=== PATIENT | female | born 1940 | race Two or more races ===

== ENCOUNTER 2024-08-21 16:50 | Inpatient (IN) | payer MEDICARE, MEDICAID, SELFPAY ==
[2024-08-21 17:05] VITALS: BP 174/84; PULSE 95; RESP 18; TEMP 37.2; O2SAT 97; BMI 29.9
--- NOTE | 2024-08-21 17:05 | XR_ITS ---
Examination: CT abdomen and pelvis without contrast. Coronal 3-D reconstructions. Sagittal 2-D reconstructions. Date and time of exam:August 21, 2024 1758 hrs. Indications: Abdominal pain nausea vomiting and diarrhea beginning 2 days ago, small bowel obstruction history on CT abdomen pelvis March 29, 2024 CTDI: vol (mGy): 9.98 DLP: (mGycm): 565 Technique: Axial images of the abdomen have been obtained, 3 mm slice thickness Intravenous contrast material has not been administered. Low dose protocols were performed. One or more of the following dose reduction techniques were used; automated exposure control, adjustment of the mA and/or KV according to patient size, use of iterative reconstruction technique. Findings: Again noted 15 mm nodule in the right midlung which is calcified Mild enlargement cardiac contour No focal liver or splenic lesions Absent gallbladder No pancreatic or adrenal mass Bilateral parapelvic renal cysts Aorta normal size Multiple fluid distended small bowel loops No pericecal inflammatory change 15 mm fat-containing umbilical hernia Colonic diverticulosis, no diverticulitis Contracted urinary bladder No pelvic mass Grade 1 anterolisthesis L4 on L5 Moderate narrowing hip joints Impression: Small bowel obstruction pattern, consider Gastrografin small bowel series follow-up
--- NOTE | 2024-08-21 17:06 | PD.EDRME ---
Rapid Medical Screening Exam RME Arrival date/time: 08/21/24 16:50 83-year-old female with a history of hypertension and diverticulosis presents to the emergency room with a chief complaint of 8 out of 10 epigastric pain, vomiting x 1 day. I have greeted and performed a focused initial assessment of this patient. A comprehensive ED assessment and evaluation of the patient, analysis of all test results, and completion of the medical decision making process will be conducted by additional ED providers. Chief Complaint: Abdominal Pain Time Seen by Provider: 08/21/24 16:55 Vital signs reviewed by provider: Yes
[2024-08-21] MEDS: MG HYD/AL HYD/SIME (Maalox Reg) SUSP 30 ML UDC PO (17:10)
[2024-08-21] MEDS: ONDANSETRON ODT 4 MG TABRAP PO (17:10)
[2024-08-21 17:39] LABS: Basophils # (Auto) 0.1 Thou/mm3 (0.0-0.2); Basophils % (Auto) 0 % (0-2.5); Eosinophils # (Auto) 0.1 Thou/mm3 (0.0-0.5); Eosinophils % (Auto) 1 % (0-10); Hematocrit 25.1 % (36.0-46.0); Immature Granulocytes % (Auto) 0 % (0-0); Immature Granulocytes Auto 0.06 Thou/mm3 (0.00-0.00); Lymphocytes # (Auto) 1.5 Thou/mm3 (1.0-4.8); Lymphocytes % (Auto) 11 % (10-50); Mean Corpuscular HGB Conc 29.1 g/dl (31.0-37.0); Mean Corpuscular Hemoglobin 20.9 pg (25.0-35.0); Mean Corpuscular Volume 72 fL (80-100); Monocytes # (Auto) 0.7 Thou/mm3 (0.0-0.8); Monocytes % (Auto) 5 % (0-12); Neutrophils # (Auto) 11.4 Thou/mm3 (1.8-7.7); Neutrophils % (Auto) 83 % (37-80); Nucleated Red Blood Cell # 0.02 Thou/mm3 (0.00-0.00); Nucleated Red Blood Cell % 0 /100 WBC (0); Platelet Count 399 Thou/mm3 (140-440); RDW Standard Deviation 44.1 fL (36.4-46.3); Red Blood Count 3.49 Miln/mm3 (4.00-5.20); White Blood Count 13.8 Thou/mm3 (3.6-11.0)
[2024-08-21 17:57] LABS: Hemoglobin 7.3 g/dL (12.0-16.0)
[2024-08-21 18:17] LABS: Alanine Aminotransferase 12 U/L (10-49); Albumin, Serum 4.7 gm/dL (3.4-4.8); Albumin/Globulin Ratio 1.8 (1.2-2.2); Alkaline Phosphatase 110 U/L (46-116); Anion Gap 10 (7-16); Aspartate Amino Transferase 14 U/L (0-34); BUN/Creatinine Ratio 20 Ratio (12-20); Bilirubin,Total 0.4 mg/dL (0.3-1.2); Blood Urea Nitrogen 18 mg/dL (9-23); Calcium 9.7 mg/dL (8.3-10.6); Calcium (Corrected) 9.7 mg/dL (8.5-10.1); Carbon Dioxide 25.2 mMol/L (20.0-31.0); Chloride 105 mMol/L (98-107); Creatinine (Component) 0.9 mg/dL (0.6-1.3); Estimated Creatinine Clearance 44.7 mL/min (>60); Globulin 2.6 gm/dL (2.3-3.5); Glucose 165 mg/dL (74-106); Lipase 29 U/L (12-53); Osmolality,Calculated 285 (275-295); Potassium 4.9 mMol/L (3.4-5.1); Sodium 140 mMol/L (136-145); Total Protein 7.3 gm/dL (5.7-8.2); eGFR > 60 See Note
[2024-08-21 18:55] LABS: Collection Type, Urine Clean Catch
--- NOTE | 2024-08-21 19:15 | XR_ITS ---
Examination: Small bowel series 4 KUBs Exam date and time: August 21, 2024 1129 hrs. Indications: Abdominal pain and distention, dilated small bowel loops on CT abdomen pelvis study today 5:58 PM Technique And Findings: Postpartum Rn AP supine abdomen demonstrates air distended small bowel loops Patient received 120 cc Gastrografin through the orogastric tube with immediate 45 minute one hour 45 minute delayed abdomen films Contrast present in the stomach and duodenal bulb Impression: Early small bowel obstruction films Recommend follow-up KUBs 1:00 AM, 3:00 AM, 5:00 AM, 7:00 AM
--- NOTE | 2024-08-21 19:26 | PD.EDADULT ---
ED General RME/HPI General Chief complaint: Abdominal Pain Stated complaint: SEND BY PMD, C/O ABD. PAIN, N/V/D Time Seen by Provider: 08/21/24 16:55 Arrival date/time: 08/21/24 16:50 CC: Nausea vomiting with epigastric right upper quadrant pain HPI ongoing for 1 day. Denies fever chest pain shortness of breath or difficulty breathing. Currently the pain is an 8 on a 10 scale. RME / HPI RME / HPI narrative: 08/21/24 16:50 83-year-old female with a history of hypertension and diverticulosis presents to the emergency room with a chief complaint of 8 out of 10 epigastric pain, vomiting x 1 day. I have greeted and performed a focused initial assessment of this patient. A comprehensive ED assessment and evaluation of the patient, analysis of all test results, and completion of the medical decision making process will be conducted by additional ED providers. Related Data Home Medications ?Medication ?Instructions ?Recorded ?Confirmed losartan 50 mg tablet (Cozaar) 50 mg PO QDAY #0 tabs 06/27/15 05/18/24 aspirin 81 mg capsule 81 mg PO QDAY 03/29/24 05/18/24 omeprazole 20 mg capsule,delayed 20 mg PO QDAY 03/29/24 05/18/24 release linaclotide 145 mcg capsule 145 mcg PO DAILY 05/18/24 05/18/24 (Linzess) Allergies Allergy/AdvReac Type Severity Reaction Status Date / Time almond AdvReac Mild Nausea Verified 08/21/24 16:54 Review of Systems Review of Systems Narrative Review of Systems: GEN: No fever, no chills, no weight loss EYES: No discharge, no visual changes, no pain HEENT: No ear pain, no congestion, no sore throat PULM: No shortness of breath, no cough, no congestion CV: No chest pain, no dyspnea on exertion, no palpitations GI: + nausea, + vomiting, no diarrhea, no pain, no constipation : No frequency, no urgency, no dysuria MUSC/SKEL: No joint pain, no back pain SKIN: No rash PSYCH: No hallucinations, no depression HEME/LYMPH: No easy bleeding or bruising tendencies NEURO: No weakness, no headache Past Medical History Past Medical History NEUROLOGIC: Negative Neurological Disorders or Seizures CARDIAC: Positive Cardiac Disorders and Hypertension; Negative Myocardial Infarction, Cardiac Arrhythmia, Atrial Fibrillation, Angina, Heart Murmur, Coronary Artery Disease, Atherosclerotic Heart Disease, Peripheral Vascular Disease, Hypercholesterolemia, Aneurysm, Congestive Heart Failure, Congenital Heart Disease, Valvular Heart Disease, Rheumatic Fever, Cardiomyopathy, Edema, Pericarditis, Cellulitis, Deep Vein Thrombosis, Hypotension or Varicose Veins RESPIRATORY: Positive Pneumonia (IN THE PAST); Negative Chronic Obstructive Pulmonary Disease (COPD), Asthma or Tuberculosis GASTROINTESTINAL: Positive Gastrointestinal Disorders (CONSTIPATION, BLOATING), Gall Bladder Disease (HAD SURGERY) and Gastroesophageal Reflux Disease; Negative Hepatitis, Cirrhosis, Pancreatitis, Celiac Disease, Gastrointestinal Bleed, Esophageal Varices, Adan's Esophagus, Colitis, Ulcerative Colitis, Diverticulitis, Diverticulosis, Ulcer, Irritable Bowel, Crohn's Disease, Obstructive Bowel, Hiatal Hernia, Hemorrhoids or Obesity GENITOURINARY: Negative Genitourinary Disorders, Renal Disease or Dialysis REPRODUCTIVE: Positive Previous Pregnancies; Negative Breast Cancer, Endometriosis or Pelvic Inflammatory Disease MUSCULOSKELETAL: Positive Musculoskeletal Disorders and Arthritis; Negative Osteoporosis or Fractures ENT: Positive Cataracts (BILATERAL) and Deafness (SELAWIK); Negative Glaucoma, Blind, Retinal Detachment, Macular Degeneration, Ear Infection or Eye Prosthesis ENDOCRINE: Negative Endocrine Disorders, Diabetes Mellitus Type 1, Diabetes Mellitus Type 2, Hypoglycemia, [place]'s Syndrome, [place]'s Disease, Hyperthyroidism, Hypothyroidism, Parathyroid Disease, Pituitary Disease, Systemic Lupus Erythematosus, Syndrome of Inappropriate Antidiuretic Hormone (SIADH), Adrenal Disease or Graves' Disease HEMATOLOGIC: Positive Blood Disorders and Anemia; Negative Sickle Cell Disease PSYCHO/SOCIAL: Positive Depression (IN THE PAST) and Anxiety (IN THE PAST) OTHER HISTORY: Positive Chicken Pox and Measles; Negative Hospitalization, Autoimmune Disease, Down Syndrome, Developmental Delay, Shingles, Falls, Blood Transfusions, Anesthesia Reactions, Chemotherapy, MRSA, Human Immunodeficiency Virus (HIV), Mumps, Rubella (Chinese Measles), Pertussis, Clostridium Difficile, Cancer or Breast Cancer Family History FAMILY HISTORY: Positive Family Cardiac Disorders and Family Surgery; Negative Family Psychiatric Problems, Family Respiratory Disorders, Family Gastrointestinal Problems, Family Cancer or Family Anesthesia Reaction Surgical History SURGICAL: Positive Eye Surgery, Abdominal Surgery, Joint Replacement and Hysterectomy; Negative Cardiac Surgery, Pacemaker or Endocrine Surgery Social History SMOKING STATUS: Never smoker SUBSTANCE USE: does not use ED Exam Narrative Physical exam: [General: In mild discomfort but not in any acute distress Head normocephalic HEENT: Within acceptable limits Neck is supple nontender Chest equal chest rise nontender to palpation Respiratory: Clear to auscultation no wheezes crackles or rubs CV: Rate rhythm is regular no murmurs rubs or clicks Abdomen is soft, epigastric right upper quadrant tenderness no reflexive guarding no rebound tenderness no left upper or lower abdominal tenderness with palpation. Back: No CVA tenderness no spinous process tenderness from cervical spine thoracic and lumbar spine Skin: Intact no petechiae rash induration ulceration or crepitus Extremities: Moving all extremity against resistance cap refill less than 2 seconds neurosensory intact. No lower extremity edema. Neuro: Awake alert oriented x3 Glascow coma 15 no focal deficits] Course Quality Measures none Orders Category Date Time Status Saline [Insert IV] NOW Care 08/21/24 19:[address] abdomen pelvis wo con Stat Exams 08/21/24 17:05 Completed XR small bowel single contrast Stat Exams 08/21/24 19:15 Ordered CBC Stat Lab 08/21/24 17:14 Completed CMP [Comprehensive Metabolic Panel] Stat Lab 08/21/24 17:14 Completed Lipase Stat Lab 08/21/24 17:14 Completed UA [Urinalysis] Stat Lab 08/21/24 18:31 Completed Urine Culture Stat Lab 08/21/24 18:31 Received Ondansetron Inj [Zofran Inj] Med 08/21/24 19:21 Discontinued 4 mg IV X1 ONE Ondansetron Odt [Zofran Odt] Med 08/21/24 17:05 Discontinued 4 mg PO X1 ONE Sodium Chloride 0.9% 1000 ml [Ns] 1,000 ml Med 08/21/24 19:21 Active IV 999 mls/hr mg Hyd/Al Hyd/Rosa Susp [Maalox Susp] Med 08/21/24 17:06 Discontinued 30 ml PO X1 ONE Vital Signs Vital signs: Vital Signs Temperature 98.9 F 08/21/24 17:05 Pulse Rate 95 08/21/24 17:05 Respiratory Rate 18 08/21/24 17:05 Blood Pressure 174/84 H 08/21/24 17:05 Pulse Oximetry (%) 97 08/21/24 17:05 Oxygen Delivery Method Room Air 08/21/24 17:[address] [facility] Patient data External records reviewed:: [facility] previous records Clinical information provided by:: patient and family Social determinants that could affect healthcare access:: none Patient has the following chronic illnesses:: Diverticulitis history of SBO How is presenting disease/condition affected by chronic disease/condition?: exacerbated by Evaluation data The following diagnostics were reviewed and interpreted by me:: lab results, radiology exam(s) and EKG tracing(s) Lab and/or radiology exams considered but not ordered:: CBC shows leukocytosis of 13.8 H&H of 7.3 and 25.1 with platelets of 399 note: Patient has dropped 3 g of hemoglobin in the past 4 months. CMP shows a sodium of 140 potassium of 4.9 chloride of 105 CO2 of 25.2 BUN of 18 creatinine of 0.9 glucose of 165 Lipase is normal. Interpretation Summary: I suspect repeat SBO, patient's case discussed with Dr. Cerna who agrees as resident for Dr. Michael Herrera's to accept the patient for admission. Medications Medications considered but not ordered:: None Medication administrations:: Medication Administration History Sodium Chloride (Ns) 1,000 mls @ 999 mls/hr IV .Q1H1M ONE Stop: 08/21/24 20:21 Discontinued Medications Al Hydrox/Mg Hydrox/Simethicone (Mg Hyd/Al Hyd/Rosa (Maalox Reg) Susp 30 Ml Udc) 30 ml PO X1 ONE Stop: 08/21/24 17:07 Last Admin: 08/21/24 17:10 Dose: 30 ml Documented By: OA Ondansetron HCl (Ondansetron Odt 4 Mg Tabrap) 4 mg PO X1 ONE; Protocol Stop: 08/21/24 17:06 Last Admin: 08/21/24 17:10 Dose: 4 mg Documented By: OA Ondansetron HCl (Ondansetron Inj 2 Mg/Ml Inj 2 Ml) 4 mg IV X1 ONE; Protocol Stop: 08/21/24 19:22 None Consultations Consultation(s) initiated? (list below): No Diagnosis Differential Diagnosis ED Complaint MDM: SBO ileus obstipation Most likely diagnosis given after review of the tests above:: SBO Admission Indicated Admission indicated?: indicated Explain why admission is indicated or not indicated:: Further medical management Admission Request Was there a request for admission?: No Disposition Plan Disposition Plan: Admit Medical Decision Making Differential Diagnosis Differential Diagnosis: SBO ileus obstipation Lab Data 08/21/24 17:14 08/21/24 17:14 Labs: Lab Results 08/21/24 08/21/24 Range/Units 17:14 18:31 WBC 13.8 H (3.6-11.0) Thou/mm3 RBC 3.49 L (4.00-5.20) Miln/mm3 Hgb 7.3 L (12.0-16.0) g/dL Hct 25.1 L (36.0-46.0) % MCV 72 L (80-100) fL MCH 20.9 L (25.0-35.0) pg MCHC 29.1 L (31.0-37.0) g/dl RDW Std Deviation 44.1 (36.4-46.3) fL Plt Count 399 (140-440) Thou/mm3 Neut % (Auto) 83 H (37-80) % Lymph % (Auto) 11 (10-50) % Reagan % (Auto) 5 (0-12) % Eos % (Auto) 1 (0-10) % Baso % (Auto) 0 (0-2.5) % Neut # (Auto) 11.4 H (1.8-7.7) Thou/mm3 Lymph # (Auto) 1.5 (1.0-4.8) Thou/mm3 Reagan # (Auto) 0.7 (0.0-0.8) Thou/mm3 Eos # (Auto) 0.1 (0.0-0.5) Thou/mm3 Baso # (Auto) 0.1 (0.0-0.2) Thou/mm3 Immature Gran # (Auto) 0.06 H (0.00-0.00) Thou/mm3 Absolute Nucleated RBC 0.02 H (0.00-0.00) Thou/mm3 Immature Gran % 0 (0-0) % Nucleated RBC % 0 (0) /100 WBC Sodium 140 (136-145) mMol/L Potassium 4.9 (3.4-5.1) mMol/L Chloride 105 (98-107) mMol/L Carbon Dioxide 25.2 (20.0-31.0) mMol/L Anion Gap 10 (7-16) BUN 18 (9-23) mg/dL Creatinine 0.9 (0.6-1.3) mg/dL Estim Creat Clear Calc 44.7 L (>60) mL/min eGFR > 60 (60 - ) See Note BUN/Creatinine Ratio 20 (12-20) Ratio Glucose 165 H (74-106) mg/dL Calculated Osmolality 285 (275-295) Calcium 9.7 (8.3-10.6) mg/dL Corrected Calcium 9.7 (8.5-10.1) mg/dL Total Bilirubin 0.4 (0.3-1.2) mg/dL AST 14 (0-34) U/L ALT 12 (10-49) U/L Alkaline Phosphatase 110 (46-116) U/L Total Protein 7.3 (5.7-8.2) gm/dL Albumin 4.7 (3.4-4.8) gm/dL Globulin 2.6 (2.3-3.5) gm/dL Albumin/Globulin Ratio 1.8 (1.2-2.2) Lipase 29 (12-53) U/L Ur Collection Type Clean Catch Urine Color Yellow (Lt Yel-Yel) Urine Clarity Clear (Clear/Hazy) Urine pH 6.5 (5.0-7.0) Ur Specific [place] 1.021 (1.001-1.035) Urine Protein 1+ A (Neg - Trace) Urine Glucose (UA) Negative (Negative) Urine Ketones Negative (Negative) Urine Blood Negative (Negative) Urine Nitrite Negative (Negative) Urine Bilirubin Negative (Negative) Urine Urobilinogen (Auto) Negative (0.0-1.0) mg/dL Ur Leukocyte Esterase Positive (Negative) Urine RBC 2 (0-3) /hpf Urine WBC 8 H (0-5) /hpf Ur Squamous Epith Cells 3 (0-5) /hpf Urine Bacteria None (None) Hyaline Casts < 1 (0-1) /hpf Discharge Plan Plan Patient Disposition: Other Care w/in Hosp ([facility]) Patient condition on transfer: Stable Prescriptions/Referrals Prescriptions/Med Rec: No Action losartan [Cozaar] 50 mg Tablet 50 mg PO QDAY Qty: 0 Linzess 145 mcg capsule 145 mcg PO DAILY Patient Comments: PLEASE SEE ATTACHED FOR DETAILED DIRECTIONS omeprazole 20 mg Capsule,Delayed Release(Dr/Ec) 20 mg PO QDAY aspirin 81 mg Capsule 81 mg PO QDAY Referrals: Ariel Henderson MD [Primary Care Provider] - In 1 week Problem List Clinical Impression: SBO (small bowel obstruction) Patient/Caregiver Discharge Instructions Education Materials: Small Bowel Obstruction Print Language: Cypriot Stand Alone Forms: [place] Award Info., Patient Portal Info Letter PA/ASSISTANT OPERATOR Supervising Physician PA/ASSISTANT OPERATOR Supervising Physician: Praveen Avila ENP
[2024-08-21 19:30] LABS: Bilirubin,Urine Negative (Negative); Blood,Urine Negative (Negative); Clarity,Urine Clear (Clear/Hazy); Color,Urine Yellow (Lt Yel-Yel); Glucose, Urine Negative (Negative); Hyaline Casts,Urine < 1 /hpf (0-1); Ketones,Urine Negative (Negative); Leukocyte Esterase,Urine Positive (Negative); Nitrite,Urine Negative (Negative); PH,Urine 6.5 (5.0-7.0); Protein,Urine 1+ (Neg - Trace); RBC,Urine 2 /hpf (0-3); Specific Gravity,Urine 1.021 (1.001-1.035); Squamous Epithelial Cell,Urine 3 /hpf (0-5); Urobilinogen,Urine Negative mg/dL (0.0-1.0); WBC,Urine 8 /hpf (0-5)
[2024-08-21] MEDS: ONDANSETRON INJ 2 MG/ML INJ 2 ML 4 MG IV ×2 (19:46→23:04)
[2024-08-21] MEDS: SODIUM CHLORIDE 0.9% 1000 ML 1,000 ML 999 ML IV (19:47)
[2024-08-21 20:16] VITALS: BP 161/88; PULSE 71; RESP 17; O2SAT 97
[2024-08-21] MEDS: KETOROLAC INJ 30 MG/ML VIAL 15 MG IVP (20:32)
--- NOTE | 2024-08-21 20:55 | XR_ITS ---
Examination: AP chest single view Technique one AP portable upright chest single view Exam date and time: August 21, 20242108 hrs. Comparison March 30, 2024 Indications: Status post orogastric tube placement Findings: Orogastric tube coiled in the stomach satisfactory position No significant cardiac enlargement No pneumonia or pulmonary edema Stable 15 mm pulmonary nodule right lower lobe Impression: Orogastric tube coiled in the stomach satisfactory position
--- NOTE | 2024-08-21 20:56 | ESHP_ITS ---
Documentation for date of: 08/21/24 [facility] History of Present Illness Chief complaint: ABDOMINAL DISTENSION AND VOMITINGS History of present illness: 83-year-old female with past medical history of hypertension, recurrent episodes of SBO, GERD presented to the hospital with a chief complaints of abdominal distention, pain and vomiting since 1 day. Patient was apparently normal 1 day ago, this morning patient developed abdominal distention associated with multiple episodes of vomitings, bilious and also reported that she had small amounts of loose watery stools associated with no blood or mucus. Reported that she is having severe abdominal pain throughout the abdomen, 10/10 in severity. Reported that everything was normal yesterday. As patient had previous episodes of small bowel obstruction, she felt that symptoms are similar to the previous episodes for which she called the daughter and later brought to our ED. While examining the patient, patient had an episode of projectile vomiting in the ED. ED Course: -Initial vitals stable except for mildly elevated blood pressure 174/84 mmHg -Labs significant for WBC 13.8, Hb 7.3, MCV 72, MCH 20.9, MCHC 29.1. Sodium 140, potassium 4.9, chloride 105, bicarb 25.2, anion gap 10, BUN 18, creatinine 0.9, liver functions are within normal limits. Urinalysis showed 1+ proteinuria. CT abdomen/pelvis showed small bowel obstruction -In the ED, patient was given ondansetron, IV fluids, ketorolac. -Patient was admitted for small bowel obstruction Past medical history: Hypertension, recurrent episodes of SBO, GERD. Past surgical history: Hysterectomy, cholecystectomy, appendectomy, left knee total replacement Social history: Denies smoking, alcohol, other illicit drug abuse. Review of Systems Review of Systems Systems Reviewed: All systems reviewed, normal except as documented Exam Vital Signs Temp Pulse Resp BP Pulse Ox O2 Del Method 98.9 F 71 17 161/88 H 97 Room Air 08/21/24 17:05 08/21/24 20:16 08/21/24 20:16 08/21/24 20:16 08/21/24 20:16 08/21/24 20:16 Narrative Exam General: Awake. In moderate distress HEENT: Normocephalic, atraumatic, mucous membranes moist. Heart: Regular rate and rhythm, no murmurs. Lungs: Clear to auscultation with no wheezing or crackles. Abdomen: Soft, moderately distended, mildly tender to touch, positive bowel sounds. ?No guarding or rebound tenderness. Neurologic: Alert and oriented x3, no gross neurological deficit, and patient able to move all 4 extremities. Extremities: No edema. Skin: No rash or ecchymoses. Results: Labs 08/21/24 17:14 08/21/24 17:14 Labs: Short CBC 08/21/24 Range/Units 17:14 WBC 13.8 H (3.6-11.0) Thou/mm3 Hgb 7.3 L (12.0-16.0) g/dL Hct 25.1 L (36.0-46.0) % Plt Count 399 (140-440) Thou/mm3 BMP 08/21/24 17:14 Sodium 140 Potassium 4.9 Chloride 105 Carbon Dioxide 25.2 BUN 18 Creatinine 0.9 Glucose 165 H Calcium 9.7 Liver Function 08/21/24 Range/Units 17:14 Total Bilirubin 0.4 (0.3-1.2) mg/dL AST 14 (0-34) U/L ALT 12 (10-49) U/L Alkaline Phosphatase 110 (46-116) U/L Albumin 4.7 (3.4-4.8) gm/dL Urine 08/21/24 Range/Units 18:31 Urine Color Yellow (Lt Yel-Yel) Urine Clarity Clear (Clear/Hazy) Urine pH 6.5 (5.0-7.0) Ur Specific [place] 1.021 (1.001-1.035) Urine Protein 1+ A (Neg - Trace) Urine Glucose (UA) Negative (Negative) Quality Measures Quality Measures none Advance care planning discussed with:: patient and child Medications Home Medications and Allergies Home Medications ?Medication ?Instructions ?Recorded ?Confirmed ?Type losartan 50 mg tablet (Cozaar) 50 mg PO QDAY #0 tabs 06/27/15 05/18/24 History aspirin 81 mg capsule 81 mg PO QDAY 03/29/24 05/18/24 History omeprazole 20 mg capsule,delayed 20 mg PO QDAY 03/29/24 05/18/24 History release linaclotide 145 mcg capsule 145 mcg PO DAILY 05/18/24 05/18/24 History (Linzess) Allergies Allergy/AdvReac Type Severity Reaction Status Date / Time almond AdvReac Mild Nausea Verified 08/21/24 16:54 Visit Medications Acetaminophen (Acetaminophen Supp 650 Mg Supp) 650 mg WA Q6HR PRN PRN Reason: Fever > 100.3 Stop: 09/20/24 20:36 Enoxaparin Sodium (Enoxaparin Sod Inj 40 Mg/0.4 Ml Syringe) 40 mg SC QDAY TUCKER Stop: 09/05/24 08:59 Ondansetron HCl (Ondansetron Inj 2 Mg/Ml Inj 2 Ml) 4 mg IV Q6H PRN; Protocol PRN Reason: NAUSEA OR VOMITING Stop: 09/20/24 20:36 Discontinued Medications Al Hydrox/Mg Hydrox/Simethicone (Mg Hyd/Al Hyd/Rosa (Maalox Reg) Susp 30 Ml Udc) 30 ml PO X1 ONE Stop: 08/21/24 17:07 Last Admin: 08/21/24 17:10 Dose: 30 ml Sodium Chloride (Ns) 1,000 mls @ 999 mls/hr IV .Q1H1M ONE Stop: 08/21/24 20:21 Last Admin: 08/21/24 19:47 Dose: 999 mls/hr Ketorolac Tromethamine (Ketorolac Inj 30 Mg/Ml Vial) 15 mg IVP X1 ONE Stop: 08/21/24 20:17 Last Admin: 08/21/24 20:32 Dose: 15 mg Ondansetron HCl (Ondansetron Odt 4 Mg Tabrap) 4 mg PO X1 ONE; Protocol Stop: 08/21/24 17:06 Last Admin: 08/21/24 17:10 Dose: 4 mg Ondansetron HCl (Ondansetron Inj 2 Mg/Ml Inj 2 Ml) 4 mg IV X1 ONE; Protocol Stop: 08/21/24 19:22 Last Admin: 08/21/24 19:46 Dose: 4 mg Assessment & Plan Plan 83-year-old female with past medical history of hypertension, recurrent episodes of SBO, GERD presented to the hospital with a chief complaints of abdominal distention, pain and vomiting since 1 day and admitted for small bowel obstruction # Small bowel obstruction, recurrent # History of multiple episodes of small bowel obstruction # Leukocytosis, likely reactive -Patient had previous history of 2 episodes of SBO which was treated conservatively in our hospital -Presented with vomitings, abdominal distention and pain since 1 day on the day of admission. -Endorsed that she had passed loose, watery, small amount of stools on the day of admission. -Labs showed CBC 13.8, hemoglobin 7.3 -Abdominal plain CT showed small bowel obstruction -Colonoscopy done on 05/2024 - Perianal hemorrhoids and sigmoid diverticulosis Plan -NG tube was placed -N.p.o. -Small bowel series was ordered -Dr New was consulted, awaited his recommendations -Patient received IV fluids in the ED and started on LR at 80 mL/h # Microcytic hypochromic anemia -Hemoglobin at the time of admission is 7.3, MCV 72, MCH 20.9, MCHC 29.1 -Iron, B12 and folate levels were ordered -Transfuse if hemoglobin is less than 7 -Monitor CBC -Stool for occult blood ordered # History of hypertension -Patient is on losartan 50 Mg p.o. daily at home -As patient currently on NG tube connected to suction, did not restarted her home medication -Hydralazine 10 Mg IV as needed SBP > 180 Patient plan of care was discussed with the attending physician, Dr. Antonio Borja, PGY1 Attending Provider Attestation/Addendum 83-year-old female with hypertension, history of small bowel obstruction, GERD presents with vomiting, abdominal distention, pain. Imaging shows small bowel obstruction. The patient will be admitted for further treatment and monitoring. Check electrolytes. Surgical consultation as indicated. Repeat imaging to monitor treatment response.
[2024-08-22] VITALS (7 sets, daily range): BP systolic 115–147; BP diastolic 60–86; PULSE 78–103; RESP 14–18; TEMP 36.4–36.9; O2SAT 92–96; BMI 30.1; BMI 30.3
--- NOTE | 2024-08-22 00:27 | PC.NURSE ---
Attempted to do med rec but pt does not have a list with her and she doesn't remember what she takes at home. Daughter said she will bring her med list in the morning
[2024-08-22] MEDS: KETOROLAC INJ 30 MG/ML VIAL 15 MG IVP (00:55)
--- NOTE | 2024-08-22 01:00 | XR_ITS ---
Examination: Abdomen AP single view Technique: AP portable supine abdomen, single view Exam date and time: August 22, 2024 0106 hours INDICATIONS: Abdominal pain and distention this week, small bowel obstruction on CT abdomen pelvis study yesterday FINDINGS: Dilated contrast in distended small bowel loops IMPRESSION: Dilated contrast in distended small bowel loops, multiple additional delayed films will be obtained
[2024-08-22] MEDS: RINGERS LACTATED 1000 ML 1,000 ML 80 ML IV (02:43)
--- NOTE | 2024-08-22 03:00 | XR_ITS ---
Examination: Abdomen AP single view Technique: AP portable supine abdomen, single view Exam date and time: August 22, 2024 0301 hrs. Indications: Vomiting abdominal pain this week, dilated small bowel loops small bowel obstruction pattern on CT abdomen pelvis August 21, 2024, 4 hour 15 minute delayed film post small bowel series Findings: Contrast is diluted in small bowel loops which are distended Impression: Contrast is diluted in small bowel loops which are distended Follow-up films will be obtained
[2024-08-22 06:50] LABS: Basophils % (Auto) 0 % (0-2.5); Eosinophils % (Auto) 0 % (0-10); Hematocrit 24.8 % (36.0-46.0); Immature Granulocytes % (Auto) 1 % (0-0); Immature Granulocytes Auto 0.24 Thou/mm3 (0.00-0.00); Lymphocytes % (Auto) 5 % (10-50); Mean Corpuscular HGB Conc 29.4 g/dl (31.0-37.0); Mean Corpuscular Hemoglobin 20.9 pg (25.0-35.0); Mean Corpuscular Volume 71 fL (80-100); Monocytes # (Auto) 0.7 Thou/mm3 (0.0-0.8); Monocytes % (Auto) 4 % (0-12); Neutrophils % (Auto) 89 % (37-80); Nucleated Red Blood Cell % 0 /100 WBC (0); Platelet Count 431 Thou/mm3 (140-440); RDW Standard Deviation 43.8 fL (36.4-46.3); Red Blood Count 3.49 Miln/mm3 (4.00-5.20); White Blood Count 17.9 Thou/mm3 (3.6-11.0)
[2024-08-22 06:54] LABS: Hemoglobin 7.3 g/dL (12.0-16.0)
[2024-08-22 06:58] LABS: Folate 15.68 ng/mL (>5.38); Vitamin B12 452 pg/mL (211-911)
[2024-08-22 07:09] LABS: Anion Gap 11 (7-16); BUN/Creatinine Ratio 18 Ratio (12-20); Blood Urea Nitrogen 20 mg/dL (9-23); Calcium 9.9 mg/dL (8.3-10.6); Carbon Dioxide 26.1 mMol/L (20.0-31.0); Chloride 105 mMol/L (98-107); Creatinine (Component) 1.1 mg/dL (0.6-1.3); Estimated Creatinine Clearance 36.7 mL/min (>60); Glucose 153 mg/dL (74-106); Osmolality,Calculated 288 (275-295); Sodium 142 mMol/L (136-145); eGFR 50 See Note
[2024-08-22 07:20] LABS: Ferritin 5 ng/mL (7.3-270.7); Total Iron Binding Capacity 376 mcg/dL (250-425)
[2024-08-22 07:29] LABS: Iron 10 mcg/dL (50-170); Percent Iron Saturation 2 % (20-55); Unsaturated Iron Binding 366 (225-295)
--- NOTE | 2024-08-22 09:00 | XR_ITS ---
Examination: Abdomen AP single view Technique: AP portable supine abdomen, single view Exam date and time: August 22, 2024 0907 hours INDICATIONS: Abdominal pain and distention this week, small bowel obstruction pattern on CT abdomen pelvis yesterday, 10 hour delayed film post small bowel series FINDINGS: Contrast now present in the colon IMPRESSION: Negative for complete small bowel obstruction
--- NOTE | 2024-08-22 09:08 | PC.NURSE ---
Dr. New notified pt had large BM. States hold suppository at this time, give milk of magnesia via NG and clamp it. Remove NG in a couple of hours and start clear liquid diet at lunch.
[2024-08-22] MEDS: ENOXAPARIN SOD INJ 40 MG/0.4 ML SYRINGE SC (09:26)
[2024-08-22] MEDS: Milk Of Magnesia Susp 30 ML UDC NG (09:27)
[2024-08-22 09:53] LABS: Glucose Estimated Average 120 mg/dL (80-131); Hemoglobin A1C 5.8 % Hgb (4.8-6.0)
--- NOTE | 2024-08-22 11:39 | PD.SURCONS ---
HPI Consult details Consult date: 08/22/24 Reason for consultation narrative: Small bowel obstruction History of present illness: 83-year-old female with history of hypertension has had partial small bowel resection in [place] for bowel obstruction about 3 years ago. She came into the emergency department with abdominal pain, distention with nausea and vomiting. She denies history of weight loss, changes in bowel habits or history of blood per rectum. CT scan revealed dilated loops of small bowel concerning for small bowel obstruction. NG tube was placed and patient was admitted. Small bowel series was obtained. X-ray this morning revealed contrast in the colon without evidence of bowel obstruction. She started passing flatus and had bowel movements. Review of Systems Constitutional Constitutional: Denies chills and Denies fever(s) Cardiovascular Cardiovascular: Denies chest pain Respiratory Respiratory: Denies cough Gastrointestinal Gastrointestinal: Reports abdominal pain, Reports nausea and Reports vomiting Genitourinary Genitourinary: Denies difficulty voiding Hematologic/Lymphatic Hematologic/Lymphatic: Denies easy bleeding and Denies easy bruising Past Medical History Surgical History OTHER SURGICAL HX: Knee replacement, cholecystectomy, appendectomy, hysterectomy, cataract extraction, partial small bowel resection Social History SMOKING STATUS: Never smoker SUBSTANCE USE: does not use ALCOHOL: Never Meds Home Medications and Allergies Home Medications ?Medication ?Instructions ?Recorded ?Confirmed ?Type losartan 50 mg tablet (Cozaar) 50 mg PO QDAY #0 tabs 06/27/15 05/18/24 History aspirin 81 mg capsule 81 mg PO QDAY 03/29/24 05/18/24 History omeprazole 20 mg capsule,delayed 20 mg PO QDAY 03/29/24 05/18/24 History release linaclotide 145 mcg capsule 145 mcg PO DAILY 05/18/24 05/18/24 History (Linzess) Allergies Allergy/AdvReac Type Severity Reaction Status Date / Time almond AdvReac Mild Nausea Verified 08/21/24 16:54 Exam Vital Signs Temp Pulse Resp BP Pulse Ox O2 Del Method 98.3 F 103 H 14 117/64 92 L Room Air 08/22/24 08:00 08/22/24 08:00 08/22/24 08:00 08/22/24 08:00 08/22/24 08:00 08/22/24 08:00 Constitutional Constitutional: no acute distress Routine Abdominal Exam Abdominal: Present soft, normoactive bowel sounds and surgical scars; Absent tenderness or distended Results Results: Laboratory Laboratory results: results reviewed Results: Imaging CT scan - abdomen: report reviewed and image reviewed CT scan - pelvis: report reviewed and image reviewed Assessment & Plan Problem List (1) Intestinal adhesions [bands], unspecified as to partial versus complete obstruction: Status: Acute Additional Assessment Additional comments: Small bowel obstruction resolving Plan DC NG tube and start patient on clear liquids. Will advance to soft diet tomorrow, if tolerating soft diet and continues to have bowel movements she may be discharged tomorrow (1) Intestinal adhesions [bands], unspecified as to partial versus complete obstruction Qualifiers: Intestinal obstruction extent: unspecified extent Qualified Code(s): K56.50 - Intestinal adhesions [bands], unspecified as to partial versus complete obstruction
--- NOTE | 2024-08-22 11:46 | PD.RESPRO ---
Documentation for date of: 08/22/24 Subjective Subjective Interval history: 08/22: Pt is an overnight admit. Pt states she did not have abdominal distension until she was in the ED, Pt has Hx of recurrent SBO and states she doesn't drink water at all and avoids fibers because she does not like having loose stool. Pt has been have large loose bowel movement all morning. Denies abdominal pain and abdomin is soft. Pt NG tube is not on suction. X-ray this morning revealed contrast in the colon without evidence of bowel obstruction. Pt has leukocytosis, which is likely reactive, will continue to monitor. Pts Hgb is 7.3 which is not her baseline, will consult GI for possible endoscopy. will advance diet to see if Pt. is able to tolerate oral diet. Pt denies Nausea or vomitting. no other complaints. Exam Vital Signs Temp Pulse Resp BP Pulse Ox O2 Del Method 98.3 F 103 H 14 117/64 92 L Room Air 08/22/24 08:00 08/22/24 08:00 08/22/24 08:00 08/22/24 08:00 08/22/24 08:00 08/22/24 08:00 Narrative Exam GENERAL: A&Ox3 . Awake, Not in acute distress NEURO: no focal neurological deficits HEENT: Atraumatic, Normocephalic. mucous membranes moist. Eyes open, symmetrical, & clear HEART: Normal Heart Sounds LUNGS: Clear to auscultation with no wheezing or crackles. ABDOMEN: soft, non-distended, non-tender, no guarding or rebound tenderness SKIN: No Rash or ecchymoses EXTREMITIES: No edema, tenderness, able to move all 4 extremities, pedal pulses palpated Objective Labs 08/23/24 07:49 08/23/24 04:27 Labs: Laboratory Results - last 24 hr 08/21/24 08/21/24 08/22/24 17:14 18:31 04:49 WBC 13.8 H 17.9 H RBC 3.49 L 3.49 L Hgb 7.3 L 7.3 L Hct 25.1 L 24.8 L MCV 72 L 71 L MCH 20.9 L 20.9 L MCHC 29.1 L 29.4 L RDW Std Deviation 44.1 43.8 Plt Count 399 431 D Neut % (Auto) 83 H 89 H Lymph % (Auto) 11 5 L [place] % (Auto) 5 4 Eos % (Auto) 1 0 Baso % (Auto) 0 0 Neut # (Auto) 11.4 H 16.0 H Lymph # (Auto) 1.5 1.0 [place] # (Auto) 0.7 0.7 Eos # (Auto) 0.1 0.0 Baso # (Auto) 0.1 0.0 Immature Gran # (Auto) 0.06 H 0.24 H Absolute Nucleated RBC 0.02 H 0.00 Immature Gran % 0 1 H Nucleated RBC % 0 0 Sodium 140 142 Potassium 4.9 5.0 Chloride 105 105 Carbon Dioxide 25.2 26.1 Anion Gap 10 11 BUN 18 20 Creatinine 0.9 1.1 Estim Creat Clear Calc 44.7 L 36.7 L eGFR > 60 50 L BUN/Creatinine Ratio 20 18 Glucose [address] Glu mg/dL 120 Hemoglobin A1c 5.8 Calculated Osmolality 285 288 Calcium 9.7 9.9 Corrected Calcium 9.7 Iron 10 L TIBC 376 Iron Saturation 2 L Unsat Iron Binding 366 H Ferritin 5 L Total Bilirubin 0.4 AST 14 ALT 12 Alkaline Phosphatase 110 Total Protein 7.3 Albumin 4.7 Globulin 2.6 Albumin/Globulin Ratio 1.8 Lipase 29 Vitamin B12 452 Folate 15.68 Ur Collection Type Clean Catch Urine Color Yellow Urine Clarity Clear Urine pH 6.5 Ur Specific [place] 1.021 Urine Protein 1+ A Urine Glucose (UA) Negative Urine Ketones Negative Urine Blood Negative Urine Nitrite Negative Urine Bilirubin Negative Urine Urobilinogen (Auto) Negative Ur Leukocyte Esterase Positive Urine RBC 2 Urine WBC 8 H Ur Squamous Epith Cells 3 Urine Bacteria None Hyaline Casts < 1 Quality Measures Quality Measures none Advance care planning discussed with:: patient Assessment & Plan Assessment Current Active Medications: Generic Name Dose Route Start Last Admin Trade Name Freq PRN Reason Stop Dose Admin Acetaminophen 650 mg 08/21/24 20:37 Acetaminophen Supp 650 Mg Supp [place] 09/20/24 20:36 Q6HR PRN Fever > 100.3 Enoxaparin Sodium 40 mg 08/22/24 09:00 08/22/24 09:26 Enoxaparin Sod Inj 40 Mg/0.4 Ml Syringe SC 09/05/24 08:59 40 mg QDAY TUCKER Administration Lactated Ringer's 1,000 mls @ 80 mls/hr 08/22/24 02:21 08/22/24 02:43 Lactated Ringers IV 08/22/24 14:50 80 mls/hr .[id number] ONE Administration Ketorolac Tromethamine 15 mg 08/22/24 00:38 08/22/24 00:55 Ketorolac Inj 30 Mg/Ml Vial IVP 08/27/24 00:27 15 mg Q6HR PRN Administration PAIN SCALE 4-10(Mod-Sev Ondansetron HCl 4 mg 08/21/24 20:37 08/21/24 23:04 Ondansetron Inj 2 Mg/Ml Inj 2 Ml IV 09/20/24 20:36 4 mg Q6H PRN Administration NAUSEA OR VOMITING Protocol Plan Ms. Guillermo is a 83-year-old female with past medical history of hypertension, recurrent episodes of SBO, GERD presented to the hospital with a chief complaints of abdominal distention, pain and vomiting for 1 day and admitted for small bowel obstruction. # Small bowel obstruction, recurrent # History of multiple episodes of small bowel obstruction # Leukocytosis, likely reactive -Patient had previous history of 2 episodes of SBO which was treated conservatively in our hospital -Presented with vomiting, abdominal distention and pain since 1 day on the day of admission. -Endorsed that she had passed loose, watery, small amount of stools on the day of admission. -Labs showed CBC 13.8, hemoglobin 7.3 -Abdominal plain CT showed small bowel obstruction -Colonoscopy done on 05/2024 - Perianal hemorrhoids and sigmoid diverticulosis Plan -NG tube was placed -N.p.o. -Small bowel series was ordered -Dr. New was consulted -Patient received IV fluids in the ED and started on LR at 80 mL/h - X-ray this morning revealed contrast in the colon without evidence of bowel obstruction -ordered clear liquid diet # Microcytic hypochromic anemia -Hemoglobin at the time of admission is 7.3, MCV 72, MCH 20.9, MCHC 29.1 -Iron, B12 and folate levels were ordered -Transfuse if hemoglobin is less than 7 -Monitor CBC -Stool for occult blood ordered -GI consulted, appreciate recommendations # History of hypertension -resumed home losartan 50 Mg p.o. daily at home Assessment and plan discussed with my senior resident Dr. Cavazos & attending physician Dr. Sette Dr. Carlin (PGY-1)- Internal medicine resident Attending Provider Attestation/Addendum I reviewed labs, imaging, EKG, home medications and prior available records. Face to face evaluation was performed by me. I have personally examined the patient and discussed assessment and plan with the IM team. I reviewed the resident note and agree with the plan with exceptions as below. SBO Acute anemia Possible upper GI bleed Small bowel series showed incomplete SBO. Patient had a bowel movement. Resumed diet Consulted GI for possible upper GI bleed Monitor H&H Started PPI IV twice daily
--- NOTE | 2024-08-22 12:58 | ESCONSULT_ITS ---
HPI Data of Consult Requesting Physician: oDminic Mathews MD Primary Care Provider: Ariel Henderson MD Consult Narrative Reason for consult: Nausea vomiting, pain abdomen SBO, iron deficiency anemia History of present illness: 88 years old female presented to hospital with severe epigastric right upper quadrant left upper quadrant abdominal pain With nausea vomiting and abdominal distention CT scan of the abdomen pelvis without contrast showed pattern consistent with small bowel obstruction Small bowel follow-through did show initial early small bowel obstruction burden but the contrast went into the colon Patient is able to tolerate liquid diet at the moment And had several bowel movements post Gastrografin small bowel follow-through Patient had a colonoscopy done on 05/18/2024 which showed moderate diverticulosis of the sigmoid and descending colon otherwise normal colonoscopy to cecum cc:: cc: Dominic Mathews MD Review of Systems Review of Systems Systems Reviewed: All systems reviewed, normal except as documented Past Medical History Surgical History OTHER SURGICAL HX: As in the history of present illness Meds Home Medications and Allergies Home Medications ?Medication ?Instructions ?Recorded ?Confirmed ?Type losartan 50 mg tablet (Cozaar) 50 mg PO QDAY #0 tabs 06/27/15 05/18/24 History aspirin 81 mg capsule 81 mg PO QDAY 03/29/24 05/18/24 History omeprazole 20 mg capsule,delayed 20 mg PO QDAY 03/29/24 05/18/24 History release linaclotide 145 mcg capsule 145 mcg PO DAILY 05/18/24 05/18/24 History (Linzess) Allergies Allergy/AdvReac Type Severity Reaction Status Date / Time almond AdvReac Mild Nausea Verified 08/21/24 16:54 Exam Vital Signs Temp Pulse Resp BP Pulse Ox O2 Del Method 98.4 F 83 18 134/70 H 94 L Room Air 08/22/24 12:00 08/22/24 12:00 08/22/24 12:00 08/22/24 12:00 08/22/24 12:00 08/22/24 12:00 Constitutional Comments: Alert oriented Routine Respiratory Exam Comments: Normal to auscultation Routine Abdominal Exam Comments: Soft positive bowel sounds nontender Results Labs 08/22/24 04:49 08/22/24 04:49 Labs: Short CBC 08/21/24 08/22/24 Range/Units 17:14 04:49 WBC 13.8 H 17.9 H (3.6-11.0) Thou/mm3 Hgb 7.3 L 7.3 L (12.0-16.0) g/dL Hct 25.1 L 24.8 L (36.0-46.0) % Plt Count 399 431 D (140-440) Thou/mm3 BMP 08/21/24 08/22/24 17:14 04:49 Sodium 140 142 Potassium 4.9 5.0 Chloride 105 105 Carbon Dioxide 25.2 26.1 BUN 18 20 Creatinine 0.9 1.1 Glucose 165 H 153 H Calcium 9.7 9.9 Liver Function 08/21/24 Range/Units 17:14 Total Bilirubin 0.4 (0.3-1.2) mg/dL AST 14 (0-34) U/L ALT 12 (10-49) U/L Alkaline Phosphatase 110 (46-116) U/L Albumin 4.7 (3.4-4.8) gm/dL Urine 08/21/24 Range/Units 18:31 Urine Color Yellow (Lt Yel-Yel) Urine Clarity Clear (Clear/Hazy) Urine pH 6.5 (5.0-7.0) Ur Specific [place] 1.021 (1.001-1.035) Urine Protein 1+ A (Neg - Trace) Urine Glucose (UA) Negative (Negative) Assessment and Plan Additional Assessment & Plan Additional Plan: # Small bowel obstruction resolved in a patient medical history of small bowel obstruction most likely due to abdominal adhesions # Epigastric abdominal pain # Unexplained iron deficiency anemia Plan Fiberoptic esophagogastroduodenoscopy with possible biopsy possible therapeutic intervention under intravenous moderate sedation Informed consent obtained procedure scheduled for tomorrow Thank you very much for the opportunity to participate in care of this patient
[2024-08-22] MEDS: LOSARTAN POTASSIUM 25 MG TABLET 50 MG PO (14:10)
--- NOTE | 2024-08-22 15:44 | PC.SS ---
Initial assessment: this is 83 year old female admitted for SBO. Patient appeared alert/oriented. Family at bed side. Patient lives at home with spouse. Confirmed home address. Patient describes to be independent with ADL's. Patient denies DME use at home. Patient followed by Dr. Jennings for primary care. Pharmacy of choice is [facility]. Patient assigned her daughterShruthi as her emergency contact. Patient plans to return home upon discharge. No needs identified. Community resources provided. D/c plan: home Contact: daughterShruthi or
--- NOTE | 2024-08-22 15:48 | PC.SS ---
Rounding note: anticipate d/c tomorrow if patient can tolerate diet.
[2024-08-23] VITALS (22 sets, daily range): BP systolic 107–179; BP diastolic 56–89; PULSE 69–85; RESP 13–18; TEMP 36.1–36.9; O2SAT 93–98
[2024-08-23 06:13] LABS: Basophils % (Auto) 1 % (0-2.5); Eosinophils # (Auto) 0.3 Thou/mm3 (0.0-0.5); Eosinophils % (Auto) 4 % (0-10); Immature Granulocytes % (Auto) 0 % (0-0); Immature Granulocytes Auto 0.03 Thou/mm3 (0.00-0.00); Lymphocytes # (Auto) 2.1 Thou/mm3 (1.0-4.8); Lymphocytes % (Auto) 27 % (10-50); Mean Corpuscular HGB Conc 29.4 g/dl (31.0-37.0); Mean Corpuscular Hemoglobin 21.2 pg (25.0-35.0); Mean Corpuscular Volume 72 fL (80-100); Monocytes # (Auto) 0.8 Thou/mm3 (0.0-0.8); Monocytes % (Auto) 10 % (0-12); Neutrophils # (Auto) 4.7 Thou/mm3 (1.8-7.7); Neutrophils % (Auto) 59 % (37-80); Nucleated Red Blood Cell % 0 /100 WBC (0); Platelet Count 302 Thou/mm3 (140-440); RDW Standard Deviation 45.1 fL (36.4-46.3); Red Blood Count 2.74 Miln/mm3 (4.00-5.20)
[2024-08-23 06:29] LABS: Hematocrit 19.7 % (36.0-46.0); Hemoglobin 5.8 g/dL (12.0-16.0)
--- NOTE | 2024-08-23 06:42 | PC.NURSE ---
Hgb down to 5.8, called and informed MD, spoke with Dr. Bassett, stated will review chart and put in orders .
[2024-08-23 06:43] LABS: Anion Gap 8 (7-16); BUN/Creatinine Ratio 21 Ratio (12-20); Blood Urea Nitrogen 23 mg/dL (9-23); Calcium 8.2 mg/dL (8.3-10.6); Chloride 107 mMol/L (98-107); Creatinine (Component) 1.1 mg/dL (0.6-1.3); Estimated Creatinine Clearance 35.8 mL/min (>60); Glucose 88 mg/dL (74-106); Osmolality,Calculated 283 (275-295); Potassium 4.3 mMol/L (3.4-5.1); Sodium 141 mMol/L (136-145); eGFR 50 See Note
[2024-08-23 08:07] LABS: Basophils % (Auto) 0 % (0-2.5); Eosinophils # (Auto) 0.4 Thou/mm3 (0.0-0.5); Eosinophils % (Auto) 5 % (0-10); Immature Granulocytes % (Auto) 0 % (0-0); Immature Granulocytes Auto 0.02 Thou/mm3 (0.00-0.00); Lymphocytes # (Auto) 2.1 Thou/mm3 (1.0-4.8); Lymphocytes % (Auto) 28 % (10-50); Mean Corpuscular HGB Conc 29.2 g/dl (31.0-37.0); Mean Corpuscular Hemoglobin 20.7 pg (25.0-35.0); Mean Corpuscular Volume 71 fL (80-100); Monocytes # (Auto) 0.8 Thou/mm3 (0.0-0.8); Monocytes % (Auto) 10 % (0-12); Neutrophils # (Auto) 4.4 Thou/mm3 (1.8-7.7); Neutrophils % (Auto) 57 % (37-80); Nucleated Red Blood Cell % 0 /100 WBC (0); Platelet Count 328 Thou/mm3 (140-440); RDW Standard Deviation 44.3 fL (36.4-46.3); Red Blood Count 2.76 Miln/mm3 (4.00-5.20); White Blood Count 7.6 Thou/mm3 (3.6-11.0)
[2024-08-23 08:32] LABS: Hematocrit 19.5 % (36.0-46.0); Hemoglobin 5.7 g/dL (12.0-16.0)
--- NOTE | 2024-08-23 09:15 | PC.NURSE ---
notified of repeat H&H results. Patient given blood transfusion pamphlet. With use of medical equipment repairer transfusion explained to patient and family member. Questions asked and answered to satisfaction and consent for blood transfusion obtained.
[2024-08-23] MEDS: PANTOPRAZOLE INJ 40 MG VIAL IVP ×2 (09:24→21:30)
--- NOTE | 2024-08-23 14:02 | PD.SURPROG ---
Documentation for date of: 08/23/24 Subjective Subjective Narrative: Patient is seen and examined. She is resting comfortably Exam Vital Signs Temp Pulse Resp BP Pulse Ox O2 Del Method 97.9 F 73 17 142/75 H 95 Room Air 08/23/24 14:00 08/23/24 14:00 08/23/24 14:00 08/23/24 14:00 08/23/24 14:00 08/23/24 12:00 Constitutional Constitutional: no acute distress Routine Abdominal Exam Abdominal: Present soft and normoactive bowel sounds; Absent tenderness or distended Assessment & Plan Assessment Additional comments: Small bowel obstruction resolving. She was noted to have drop in hemoglobin Plan Patient was evaluated by Dr. Haley who is planning an EGD
--- NOTE | 2024-08-23 16:29 | PD.RESPRO ---
Documentation for date of: 08/23/24 Subjective Subjective Interval history: Patient seen at bedside today. She is resting comfortably in bed. Overnight patient's hemoglobin dropped to 5.8 so a repeat H&H was ordered and 2 units were transfused. Patient was already scheduled for EGD today and confirmed that she has been having black stools for the previous 2 months so we will await results of EGD. We will hold chemical anticoagulation in the setting of GI bleed and increase her Protonix to 40 twice daily. Continue to monitor her symptoms throughout the day. Exam Vital Signs Temp Pulse Resp BP Pulse Ox O2 Del Method 97.2 F 74 17 144/72 H 95 Room Air 08/23/24 16:16 08/23/24 16:16 08/23/24 16:16 08/23/24 16:16 08/23/24 16:16 08/23/24 16:00 Narrative Exam GENERAL: A&Ox3 . Awake, Not in acute distress NEURO: no focal neurological deficits HEENT: Atraumatic, Normocephalic. mucous membranes moist. Eyes open, symmetrical, & clear HEART: Normal Heart Sounds LUNGS: Clear to auscultation with no wheezing or crackles. ABDOMEN: soft, non-distended, non-tender, no guarding or rebound tenderness SKIN: No Rash or ecchymoses EXTREMITIES: No edema, tenderness, able to move all 4 extremities, pedal pulses palpated Objective Labs 08/24/24 05:32 08/24/24 05:32 Labs: Laboratory Results - last 24 hr 08/23/24 08/23/24 04:27 07:49 WBC 8.0 D 7.6 RBC 2.74 L 2.76 L Hgb 5.8 L* D 5.7 L* Hct 19.7 L* 19.5 L* MCV 72 L 71 L MCH 21.2 L 20.7 L MCHC 29.4 L 29.2 L RDW Std Deviation 45.1 44.3 Plt Count 302 D 328 Neut % (Auto) 59 57 Lymph % (Auto) 27 28 [place] % (Auto) 10 10 Eos % (Auto) 4 5 Baso % (Auto) 1 0 Neut # (Auto) 4.7 4.4 Lymph # (Auto) 2.1 2.1 [place] # (Auto) 0.8 0.8 Eos # (Auto) 0.3 0.4 Baso # (Auto) 0.0 0.0 Immature Gran # (Auto) 0.03 H 0.02 H Absolute Nucleated RBC 0.00 0.00 Immature Gran % 0 0 Nucleated RBC % 0 0 Sodium 141 Potassium 4.3 D Chloride 107 Carbon Dioxide 26.0 Anion Gap 8 BUN 23 Creatinine 1.1 Estim Creat Clear Calc 35.8 L eGFR 50 L BUN/Creatinine Ratio 21 H Glucose 88 D Calculated Osmolality 283 Calcium 8.2 L D Blood Type O Positive Antibody Screen POSITIVE Antibody Identification Anti-E Crossmatch See Detail Blood Bank Wristband ID Yes Quality Measures Quality Measures none Advance care planning discussed with:: patient Assessment & Plan Assessment Current Active Medications: Generic Name Dose Route Start Last Admin Trade Name Freq PRN Reason Stop Dose Admin Acetaminophen 650 mg 08/21/24 20:37 Acetaminophen Supp [address] 09/20/24 20:36 Q6HR PRN Fever > 100.3 Enoxaparin Sodium 40 mg 08/22/24 09:00 08/22/24 09:26 Enoxaparin Sod Inj 40 Mg/0.4 Ml Syringe SC 09/05/24 08:59 40 mg QDAY TUCKER Administration Losartan Potassium 50 mg 08/22/24 14:00 08/23/24 09:19 Losartan Potassium 25 Mg Tablet PO 09/21/24 13:59 Not Given QDAY TUCKER Ondansetron HCl 4 mg 08/21/24 20:37 08/21/24 23:04 Ondansetron Inj 2 Mg/Ml Inj 2 Ml IV 09/20/24 20:36 4 mg Q6H PRN Administration NAUSEA OR VOMITING Protocol Pantoprazole Sodium 40 mg 08/23/24 09:00 08/23/24 09:24 Pantoprazole Inj 40 Mg Vial IVP 09/22/24 08:59 40 mg BID TUCKER Administration Plan Ms. Guillermo is a 83-year-old female with past medical history of hypertension, recurrent episodes of SBO, GERD presented to the hospital with a chief complaints of abdominal distention, pain and vomiting for 1 day and admitted for small bowel obstruction. # Small bowel obstruction, recurrent # History of multiple episodes of small bowel obstruction # Leukocytosis, likely reactive -Patient had previous history of 2 episodes of SBO which was treated conservatively in our hospital -Presented with vomiting, abdominal distention and pain since 1 day on the day of admission. -Endorsed that she had passed loose, watery, small amount of stools on the day of admission. -Labs showed CBC 13.8, hemoglobin 7.3 -Abdominal plain CT showed small bowel obstruction -Colonoscopy done on 05/2024 - Perianal hemorrhoids and sigmoid diverticulosis Plan ?NG tube was removed and patient's diet was advanced and she was tolerating well. -Small bowel was indeterminate for complete bowel perforation due to the fact the patient started having bowel movements. -Dr. New was consulted who advance the diet -Patient received IV fluids in the ED and started on LR at 80 mL/h - X-ray this morning revealed contrast in the colon without evidence of bowel obstruction -ordered clear liquid diet and patient will be receiving EGD from Dr. Haley today # Microcytic hypochromic anemia -Hemoglobin at the time of admission is 7.3, MCV 72, MCH 20.9, MCHC 29.1 -Iron, B12 and folate levels were ordered -Transfuse if hemoglobin is less than 7, 2 units of blood transfused on August 23. -Monitor CBC -Stool for occult blood ordered -GI consulted, appreciate recommendations patient scheduled for EGD today. # History of hypertension -resumed home losartan 50 Mg p.o. daily at home Holding antihypertensive due to patient's soft blood pressure Health Maintenance: DVT prophylaxis: Hold chemical anticoagulation GI prophylaxis: Protonix 40 twice daily Diet: Clear liquid diet [place]: Not indicated Lines: Peripherals Supplemental O2: None CODE STATUS: Full code Disposition: Admitted to [facility]/tele for management of SBO which has resolved and now patient is pending EGD for upper GI bleed. Plan of care discussed with supervising attending Dr. Bisi Pina M.D. PGY-3 Attending Provider Attestation/Addendum I reviewed labs, imaging, EKG, home medications and prior available records. Face to face evaluation was performed by me. I have personally examined the patient and discussed assessment and plan with the IM team. I reviewed the resident note and agree with the plan with exceptions as below. SBO Acute anemia Possible upper GI bleed Hemoglobin significantly dropped. Ordered 2 PRBC. Small bowel series showed incomplete SBO. Patient had a bowel movement. Bowel obstruction resolved Consulted GI for possible upper GI bleed Monitor H&H Started PPI IV twice daily BP is borderline. Held antihypertensive treatment. Monitor vital signs closely.
--- NOTE | 2024-08-23 18:34 | PC.NURSE ---
2 units of PRBCs transfused and tolerated well
[2024-08-23 20:09] LABS: Hemoglobin 8.6 g/dL (12.0-16.0)
[2024-08-24] VITALS: BP 139/72; PULSE 71; RESP 17; TEMP 36.6; O2SAT 95
[2024-08-24 04:00] VITALS: BP 113/67; PULSE 69; RESP 17; TEMP 36.2; O2SAT 96
[2024-08-24 05:44] LABS: Basophils % (Auto) 1 % (0-2.5); Eosinophils # (Auto) 0.4 Thou/mm3 (0.0-0.5); Eosinophils % (Auto) 6 % (0-10); Hematocrit 27.7 % (36.0-46.0); Immature Granulocytes % (Auto) 0 % (0-0); Immature Granulocytes Auto 0.02 Thou/mm3 (0.00-0.00); Lymphocytes # (Auto) 1.7 Thou/mm3 (1.0-4.8); Lymphocytes % (Auto) 24 % (10-50); Mean Corpuscular HGB Conc 31.4 g/dl (31.0-37.0); Mean Corpuscular Hemoglobin 23.1 pg (25.0-35.0); Mean Corpuscular Volume 74 fL (80-100); Monocytes # (Auto) 0.9 Thou/mm3 (0.0-0.8); Monocytes % (Auto) 13 % (0-12); Neutrophils % (Auto) 57 % (37-80); Nucleated Red Blood Cell # 0.02 Thou/mm3 (0.00-0.00); Nucleated Red Blood Cell % 0 /100 WBC (0); Platelet Count 305 Thou/mm3 (140-440); RDW Standard Deviation 45.7 fL (36.4-46.3); Red Blood Count 3.76 Miln/mm3 (4.00-5.20); White Blood Count 7.1 Thou/mm3 (3.6-11.0)
[2024-08-24 05:53] LABS: Hemoglobin 8.7 g/dL (12.0-16.0)
[2024-08-24 06:08] LABS: Anion Gap 5 (7-16); BUN/Creatinine Ratio 22 Ratio (12-20); Blood Urea Nitrogen 22 mg/dL (9-23); Calcium 8.3 mg/dL (8.3-10.6); Carbon Dioxide 27.7 mMol/L (20.0-31.0); Chloride 109 mMol/L (98-107); Estimated Creatinine Clearance 39.4 mL/min (>60); Glucose 87 mg/dL (74-106); Osmolality,Calculated 285 (275-295); Potassium 4.5 mMol/L (3.4-5.1); Sodium 142 mMol/L (136-145); eGFR 56 See Note
[2024-08-24] MEDS: PANTOPRAZOLE INJ 40 MG VIAL IVP (07:48)
[2024-08-24 08:00] VITALS: BP 139/76; PULSE 65; RESP 16; TEMP 36.2; O2SAT 96
[2024-08-24 12:00] VITALS: BP 155/68; PULSE 64; RESP 16; TEMP 36.6; O2SAT 98
--- NOTE | 2024-08-24 12:51 | PD.SURPROG ---
Documentation for date of: 08/24/24 Subjective Subjective Narrative: Patient is seen and examined. She denies abdominal pain she is eating and tolerating diet well without nausea or vomiting and having bowel movements Exam Vital Signs Temp Pulse Resp BP Pulse Ox O2 Del Method O2 Flow Rate 97.9 F 64 16 155/68 H 98 Room Air 3 08/24/24 12:00 08/24/24 12:00 08/24/24 12:00 08/24/24 12:00 08/24/24 12:00 08/24/24 12:00 08/23/24 22:00 Constitutional Constitutional: no acute distress Routine Abdominal Exam Abdominal: Present soft and normoactive bowel sounds; Absent tenderness or distended Assessment & Plan Assessment Additional comments: Small bowel obstruction resolved Plan Patient underwent an EGD by Dr. Haley yesterday. May discharge home from surgical standpoint
--- NOTE | 2024-08-24 16:14 | ESDS_ITS ---
Planned Discharge Date 08/24/24 DS: Providers Provider Date of admission: 08/21/24 20:37 Primary care physician: Ariel Henderson MD Admitting Provider: Akhil Alvarez MD Attending Provider on Admission: Dominic Mathews MD Consults: 08/21/24 20:53 Consult to General Surgery Stat Comment: Recurrent Small bowel obstruction Consulting Provider: Alcon New 08/22/24 11:53 Consult to Gastroenterology Routine Comment: Consulting Provider: Elyse Haley Attending Provider on DC: Gloria Gillis MD Discharging Provider: Gloria Gillis MD DS: Diagnosis Problem List Completed Was Problem List Reviewed/Reconciled?: Yes Hospital Course Hospital Course Hospital course: Ms. Guillermo is a 83-year-old female with past medical history of hypertension, recurrent episodes of SBO, GERD presented to the [facility] ED on 08/21/2024 complaining of abdominal pain, distention, and vomiting patient was admitted for small bowel obstruction. Patient underwent nasogastric decompression and small bowel series is ordered. During the admission patient was also found to have a hemoglobin of less than 5 and she was transfused 2 units of PRBC. Pt was found to have iron deficiency anemia. Wire Turning Machine Operator was consulted and patient underwent EGD with Dr. Haley, EGD findings are consistent with mild inflammation and no acute bleeding found. Bowel series was negative for small bowel obstruction patient is hemodynamically stable to be discharged home. Patient is advised if her symptoms return or worsen to promptly return to the ED. Images CT abdomin/pelvis Small bowel obstruction pattern Chest x-ray No pneumonia or pulmonary edema Discharge Recommendations Patient is recommended to follow-up with primary care physician within 1 week to discuss recent hospitalization and for CBC to assess for anemia Patient is recommended to follow-up with GI Dr. Haley in regards to recent EGD with biopsy. Patient is recommended to discontinue the use of ibuprofen and other NSAIDs due to history of gastritis and microcytic anemia. Patient had recent EGD and colonoscopy without any signs of apparent GI bleed. Patient is recommended to continue with Protonix 40 mg once daily for management of esophagitis and gastritis. Patient is recommended to follow a high-fiber diet, more plant-based diet, drink 64 ounces of water daily, follow a strong bowel regimen including senna stool softener and MiraLAX to ensure soft stool passage. Hospitalization Diagnosis # Small bowel obstruction, recurrent # History of multiple episodes of small bowel obstruction # Leukocytosis, likely reactive # Microcytic hypochromic anemia # History of hypertension Assessment and plan discussed with my attending physician Dr. Bisi Gillis (PGY-1)- Internal medicine resident Time Spent with Patient Time attestation: Total time spent providing and/or coordinating discharge services: Exam Vital Signs Temp Pulse Resp BP Pulse Ox O2 Del Method O2 Flow Rate 97.9 F 64 16 155/68 H 98 Room Air 3 08/24/24 12:00 08/24/24 12:00 08/24/24 12:00 08/24/24 12:00 08/24/24 12:08/24/24 12:00 08/23/24 22:00 Discharge Plan Plan Patient Disposition: Home w/HOME HEALTH Patient condition on transfer: Stable Care Plan Goals: Patient is recommended to follow-up with primary care physician within 1 week to discuss recent hospitalization and for CBC to assess for anemia Patient is recommended to follow-up with GI Dr. Haley in regards to recent EGD with biopsy. Patient is recommended to discontinue the use of ibuprofen and other NSAIDs due to history of gastritis and microcytic anemia. Patient had recent EGD and colonoscopy without any signs of apparent GI bleed. Patient is recommended to continue with Protonix 40 mg once daily for management of esophagitis and gastritis. Patient is recommended to follow a high-fiber diet, more plant-based diet, drink 64 ounces of water daily, follow a strong bowel regimen including senna stool softener and MiraLAX to ensure soft stool passage. es recomendado que la paciente kvng juliet con matta doctor primario entre 1 semana para conversar de hospitalizacion reciente y para evaluar anemia es recomendado que kvng juliet con el gastrologo dr. haley para reciente biopsia es recomendado que discontinue el uso de ibuprofen y nsaids para gastritis y anemia paciente tuvo recientemente endoscopia y colonoscopia sin simptomas de aparente sangrado paciente es recomendada que continue con protonix 40mg monica vez al bruce para el manejo de esophagitis y gastritis se recomienda que siga dieta lynda en fibra, dieta mas basada en plantas, tome 64 onzas de agua diarias, siga un regimen intestinal gurjit incluyendo senna y miralax para pasar escremento Prescriptions/Referrals Prescriptions/Med Rec: New pantoprazole 40 mg tablet,delayed release (DR/EC) 40 mg PO QDAY Qty: 90 1RF Continued losartan [Cozaar] 50 mg Tablet 50 mg PO QDAY Qty: 0 Linzess 145 mcg capsule 145 mcg PO DAILY Patient Comments: PLEASE SEE ATTACHED FOR DETAILED DIRECTIONS mirtazapine 15 mg tablet,disintegrating 15 mg PO HS Patient Comments: PLACE 1 TABLET ON THE TONGUE AND ALLOW TO DISSOLVE ONCE A DAY AT BEDTIME FOR 30 DAYS aspirin 81 mg Capsule 81 mg PO QDAY Discontinued omeprazole 20 mg Capsule,Delayed Release(Dr/Ec) 20 mg PO QDAY Referrals: Elyse Haley MD [Physician] - Ariel Henderson MD [Primary Care Provider] - Patient/Caregiver Discharge Instructions Education Materials: Small Bowel Obstruction Print Language: Danish Activity Restrictions/Additional Instructions: Patient is recommended to follow-up with primary care physician within 1 week to discuss recent hospitalization and for CBC to assess for anemia Patient is recommended to follow-up with GI Dr. Haley in regards to recent EGD with biopsy. Patient is recommended to discontinue the use of ibuprofen and other NSAIDs due to history of gastritis and microcytic anemia. Patient had recent EGD and colonoscopy without any signs of apparent GI bleed. Patient is recommended to continue with Protonix 40 mg once daily for management of esophagitis and gastritis. Patient is recommended to follow a high-fiber diet, more plant-based diet, drink 64 ounces of water daily, follow a strong bowel regimen including senna stool softener and MiraLAX to ensure soft stool passage. es recomendado que la paciente kvng juliet con matta doctor primario entre 1 semana para conversar de hospitalizacion reciente y para evaluar anemia es recomendado que kvng juliet con el gastrologo dr. haley para reciente biopsia es recomendado que discontinue el uso de ibuprofen y nsaids para gastritis y anemia paciente tuvo recientemente endoscopia y colonoscopia sin simptomas de aparente sangrado paciente es recomendada que continue con protonix 40mg monica vez al bruce para el manejo de esophagitis y gastritis se recomienda que siga dieta lynda en fibra, dieta mas basada en plantas, tome 64 onzas de agua diarias, siga un regimen intestinal gurjit incluyendo senna y miralax para pasar escremento Stand Alone Forms: [facility] Award Info., Patient Portal Info Letter Discharge Order Discharge Orders: Discharge (Routine); Ordered 08/24/24 Ordered By: Salty Pina Quality Discharge Quality Measures VTE prophylaxis MD Attestestation MD Attestation I reviewed labs, imaging, EKG, home medications and prior available records. Face to face evaluation was performed by me. I have personally examined the patient and discussed assessment and plan with the IM team. I reviewed the resident note and agree with the plan with exceptions as below. SBO, resolved Acute anemia, stable Possible upper GI bleed Consulted GI for possible upper GI bleed. Status post EGD that showed gastritis s/p biopsies. Continue PPI. Follow-up with GI as outpatient Monitor H&H: Stable Avoid NSAIDs Time spent is 40 minutes. More than 50% of the time was spent on patient education and coordination of care.
--- NOTE | 2024-08-27 07:38 | PC.CC ---
Addendum entered by Yessica Colon RN 08/27/24 12:15: Pt booked with [facility] pending SOC Addendum entered by Yessica Colon RN 08/27/24 11:35: Referrals sent to all HH agency, no preference documented, waiting for response Original Note: Pt entered into [facility], pending HH order
--- NOTE | 2024-08-28 15:12 | PC.CM ---
Still pending start of care date from Samra SORENSON
--- NOTE | 2024-08-29 17:17 | PC.CM ---
start of care date with Samra GRIER is 08/30/24.
== END 2024-08-24 14:31 | disposition home health service (06) | DRG 390 ==
LOC: SERX 19:37 → SERHOLD 21:09 → S3SX 08-22 00:02
PROVIDERS: Nurse Practitioner Family; Specialist; Student in an Organized Health Care Education/Training Program; Admitting Provider Internal Medicine; Emergency Provider Emergency Medicine; PCP Family Medicine; Visit Provider Student in an Organized Health Care Education/Training Program
PROC: (CPT 43239; principal; 2024-08-23 18:00)
DX: K56.699 Other intestinal obstruction unspecified as to partial versus complete obstruction (principal); I10 Essential (primary) hypertension; K21.9 Gastro-esophageal reflux disease without esophagitis; R80.9 Proteinuria, unspecified; D72.829 Elevated white blood cell count, unspecified; D50.9 Iron deficiency anemia, unspecified; Z87.19 Personal history of other diseases of the digestive system; Z90.49 Acquired absence of other specified parts of digestive tract; Z90.710 Acquired absence of both cervix and uterus; Z96.652 Presence of left artificial knee joint; Z79.899 Other long term (current) drug therapy
CPT/HCPCS: 36415; 74018; 74176; 74250; 80048; 80053; 81001; 82270; 82607; 82728; 82746; 83036; 83540; 83550; 83690; 85014; 85018; 85025; 86850; 86870; 86900; 86901; 86921; 86922; 87086; 96361; 96374; 96375; 99285; J1650; J1885; J2250; J2405; J2470; J3010; J7030; J7120; P9016; Q0162; Q9963; A9270

== ENCOUNTER → 2024-09-20 | Outpatient (CLI) | payer MEDICARE, MEDICAID, SELFPAY ==
[2024-09-20 13:49] LABS: Basophils # (Auto) 0.1 Thou/mm3 (0.0-0.2); Basophils % (Auto) 1 % (0-2.5); Eosinophils # (Auto) 0.3 Thou/mm3 (0.0-0.5); Eosinophils % (Auto) 4 % (0-10); Hematocrit 32.7 % (36.0-46.0); Hemoglobin 9.6 g/dL (12.0-16.0); Immature Granulocytes % (Auto) 0 % (0-0); Immature Granulocytes Auto 0.03 Thou/mm3 (0.00-0.00); Lymphocytes # (Auto) 1.8 Thou/mm3 (1.0-4.8); Lymphocytes % (Auto) 23 % (10-50); Mean Corpuscular HGB Conc 29.4 g/dl (31.0-37.0); Mean Corpuscular Hemoglobin 22.9 pg (25.0-35.0); Mean Corpuscular Volume 78 fL (80-100); Monocytes # (Auto) 0.8 Thou/mm3 (0.0-0.8); Monocytes % (Auto) 10 % (0-12); Neutrophils # (Auto) 4.9 Thou/mm3 (1.8-7.7); Neutrophils % (Auto) 62 % (37-80); Nucleated Red Blood Cell % 0 /100 WBC (0); Platelet Count 376 Thou/mm3 (140-440); RDW Standard Deviation 59.9 fL (36.4-46.3); Red Blood Count 4.19 Miln/mm3 (4.00-5.20)
[2024-09-20 14:23] LABS: Ferritin 5 ng/mL (7.3-270.7); Iron 26 mcg/dL (50-170); Percent Iron Saturation 6 % (20-55); Total Iron Binding Capacity 399 mcg/dL (250-425); Unsaturated Iron Binding 373 (225-295)
== END | disposition home or self-care (01) ==
PROVIDERS: PCP Family Medicine; Referring Provider Family Medicine; Visit Provider Family Medicine
DX: D50.8 Other iron deficiency anemias (principal); F03.90 Unspecified dementia, unspecified severity, without behavioral disturbance, psychotic disturbance, mood disturbance, and anxiety
CPT/HCPCS: 36415; 82728; 83540; 83550; 85025

== ENCOUNTER → 2024-11-12 | Outpatient (CLI) | payer MEDICARE, MEDICAID, SELFPAY ==
--- NOTE | 2024-11-12 13:40 | XR_ITS ---
Examination: Bone densitometry Date and time of exam:November 12, 2024 1329 hours INDICATIONS: Hysterectomy age 42 Technique: Lumbar spine and hip total bone mineralization values of an calculated. Peak reference and age match control results have been displayed. Findings: Lumbar spine total bone mineralization is1.138 gm/cm2. This is 0.8 standard deviations above peak reference. This is 3.7 standard deviations above age-matched controls. Hip total bone mineralization is 1.100 gm/cm2 This is 1.0 standard deviations above peak reference. This is 3.3 standard deviations above age-matched controls Impression: There is normal mineralization based on lumbar spine measurements. There is normal mineralization based on hip measurements Lumbar mineralization is increased 18.0% compared with June 12, 2020 Hip mineralization is increased 2.4% compared with June 12, 2020
== END | disposition home or self-care (01) ==
PROVIDERS: Referring Provider Family Medicine; Visit Provider Family Medicine
DX: M81.0 Age-related osteoporosis without current pathological fracture (principal)
CPT/HCPCS: 77080

== ENCOUNTER 2024-12-08 09:13 | Emergency (ER) | payer MEDICARE, MEDICAID, SELFPAY ==
[2024-12-08 09:13] VITALS: BMI 34.2
[2024-12-08 09:22] VITALS: BP 164/98; PULSE 105; RESP 18; TEMP 37.3; O2SAT 98
--- NOTE | 2024-12-08 09:39 | XR_ITS ---
Examination: Abdomen AP single view Technique: AP portable supine abdomen, single view Exam date and time: December 08, 2024 1027 hours Comparison August 22, 2024 INDICATIONS: Abdominal pain and vomiting beginning 2 days ago. FINDINGS: Air distended small bowel loop in the left abdomen Moderate stool throughout the colon No free air IMPRESSION: Suspicious for early small bowel obstruction, consider CT scan abdomen and pelvis postcontrast follow-up
--- NOTE | 2024-12-08 09:40 | PD.EDRME ---
Rapid Medical Screening Exam RME Arrival date/time: 12/08/24 09:13 This is an 83-year-old female that is brought in by family member with complaints of abdominal pain and vomiting. Patient has a history of hypertension, recurrent episodes of SBO. Patient had a recent admission and discharge August 2024 for a bowel obstruction. I have greeted and performed a focused initial assessment of this patient. Initial appropriate labs ordered at this time. A comprehensive ED assessment and evaluation of the patient and analysis of all test and completion of medical decision making process will be conducted by additional ED provider. Chief Complaint: Abdominal Pain Time Seen by Provider: 12/08/24 09:17 Vital signs: Vital Signs Temperature 99.1 F 12/08/24 09:22 Pulse Rate 105 H 12/08/24 09:22 Respiratory Rate 18 12/08/24 09:22 Blood Pressure 164/98 H 12/08/24 09:22 Pulse Oximetry (%) 98 12/08/24 09:22 Oxygen Delivery Method Room Air 12/08/24 09:22
[2024-12-08 10:29] LABS: Collection Type, Urine Voided
[2024-12-08 10:47] LABS: Basophils % (Auto) 0 % (0-2.5); Eosinophils % (Auto) 0 % (0-10); Hematocrit 49.6 % (36.0-46.0); Hemoglobin 16.3 g/dL (12.0-16.0); Immature Granulocytes % (Auto) 0 % (0-0); Immature Granulocytes Auto 0.06 Thou/mm3 (0.00-0.00); Lymphocytes # (Auto) 1.1 Thou/mm3 (1.0-4.8); Lymphocytes % (Auto) 6 % (10-50); Mean Corpuscular HGB Conc 32.9 g/dl (31.0-37.0); Mean Corpuscular Hemoglobin 28.2 pg (25.0-35.0); Mean Corpuscular Volume 86 fL (80-100); Monocytes # (Auto) 0.5 Thou/mm3 (0.0-0.8); Monocytes % (Auto) 3 % (0-12); Neutrophils # (Auto) 15.5 Thou/mm3 (1.8-7.7); Neutrophils % (Auto) 91 % (37-80); Nucleated Red Blood Cell % 0 /100 WBC (0); Platelet Count 315 Thou/mm3 (140-440); RDW Standard Deviation 62.4 fL (36.4-46.3); Red Blood Count 5.78 Miln/mm3 (4.00-5.20); White Blood Count 17.1 Thou/mm3 (3.6-11.0)
[2024-12-08 10:49] LABS: Alanine Aminotransferase 14 U/L (10-49); Albumin, Serum 4.9 gm/dL (3.4-4.8); Albumin/Globulin Ratio 1.6 (1.2-2.2); Alkaline Phosphatase 119 U/L (46-116); Anion Gap 10 (7-16); Aspartate Amino Transferase 24 U/L (0-34); BUN/Creatinine Ratio 15 Ratio (12-20); Bilirubin,Total 0.9 mg/dL (0.3-1.2); Blood Urea Nitrogen 16 mg/dL (9-23); Calcium 9.7 mg/dL (8.3-10.6); Calcium (Corrected) 9.7 mg/dL (8.5-10.1); Carbon Dioxide 25.8 mMol/L (20.0-31.0); Chloride 101 mMol/L (98-107); Creatinine (Component) 1.1 mg/dL (0.6-1.3); Estimated Creatinine Clearance 36.1 mL/min (>60); Glucose 218 mg/dL (74-106); Lipase 28 U/L (12-53); Osmolality,Calculated 282 (275-295); Potassium 4.8 mMol/L (3.4-5.1); Sodium 137 mMol/L (136-145); Total Protein 7.9 gm/dL (5.7-8.2); eGFR 50 See Note
--- NOTE | 2024-12-08 11:00 | PC.NURSE ---
PT UPDATED THAT URINE WAS SENT BACK FROM LAB DUE TO THERE NOT EBING ENOUGH, PTS DAUGHTER SAYS SHE CAN'T GIVE ANYMORE.
[2024-12-08 13:53] LABS: Lactate (Lactic Acid) 4.3 mMol/L (0.4-2.0)
[2024-12-08 14:16] LABS: Procalcitonin 0.13 ng/ml (0.0-0.49)
[2024-12-08] MEDS: SODIUM CHLORIDE 0.9% 1000 ML 1,000 ML 999 ML IV ×2 (15:38→16:41)
[2024-12-08 16:04] LABS: Bacteria,Urine Rare; Bilirubin,Urine 1+ (Negative); Blood,Urine Trace (Negative); Clarity,Urine Turbid (Clear/Hazy); Color,Urine Yellow (Lt Yel-Yel); Glucose, Urine 1+ (Negative); Hyaline Casts,Urine < 1 /hpf (0-1); Ketones,Urine Trace (Negative); Nitrite,Urine Negative (Negative); Protein,Urine 3+ (Neg - Trace); RBC,Urine 3 /hpf (0-3); Specific Gravity,Urine 1.032 (1.001-1.035); Squamous Epithelial Cell,Urine 15 /hpf (0-5); Transitional Epi Cells,Urine 1 /hpf (0-5); Urobilinogen,Urine Negative mg/dL (0.0-1.0); WBC,Urine 10 /hpf (0-5)
--- NOTE | 2024-12-08 16:05 | EDNOTE_ITS ---
ED Abdominal Pain RME/HPI General Chief Complaint: Abdominal Pain Stated complaint: EPIGASTRIC PAIN SINCE LAST NIGHT Time seen by provider: 12/08/24 09:17 Arrival date/time: 12/08/24 09:13 RME / HPI RME / HPI narrative: 12/08/24 09:13 This is an 83-year-old female that is brought in by family member with complaints of abdominal pain and vomiting. Patient has a history of hypertension, recurrent episodes of SBO. Patient had a recent admission and discharge August 2024 for a bowel obstruction. I have greeted and performed a focused initial assessment of this patient. Initial appropriate labs ordered at this time. A comprehensive ED assessment and evaluation of the patient and analysis of all test and completion of medical decision making process will be conducted by additional ED provider. DR. GERONIMO MAIN ED EVALUATION I evaluated patient in ED room 12 at 16:05 hours. This is a 83 year old female patient with history of hypertension, recurrent SBO, GERD who presented to the ED for evaluation of abdominal pain beginning last night. Pain described as aching in sensation located diffusely but mostly to the epigastric region, rating as moderate. Accompanied by nausea and nonbloody vomiting all night . Patient mentioned she initially was not able to tolerate anything by mouth since onset. However since waiting in the ED was able to drink half of a 20 oz water bottle without vomiting and pain has improved. Patient states she has passed small amount of gas today. Last bowel movement yesterday. No sick contacts with similar GI symptoms. Denies fever, chills, sweating. Denies chest pain, cough, shortness of breath. Denies dysuria, urinary frequency and urgency. Related Data Home Medications ?Medication ?Instructions ?Recorded ?Confirmed losartan 50 mg tablet (Cozaar) 50 mg PO QDAY #0 tabs 1 08/27/14 08/22/24 aspirin 81 mg capsule 81 mg PO QDAY 03/29/2408/23 linaclotide 145 mcg capsule 145 mcg PO DAILY 05/18/24 08/23/24 (Linzess) mirtazapine 15 mg disintegrating 15 mg PO HS 08/23/24 08/23/24 tablet Previous Rx's ?Medication ?Instructions ?Recorded pantoprazole 40 mg tablet,delayed 40 mg PO QDAY #90 ta bs 08/24/24 release Allergies Allergy/AdvReac Type Severity Reaction Status Date / Time almond AdvReac Mild Nausea Verified 12/08/24 09:16 Review of Systems Review of Systems Narrative Review of Systems: GEN: No fever, no chills, no weight loss EYES: No discharge, no visual changes, no pain HEENT: No ear pain, no congestion, no sore throat PULM: No shortness of breath, no cough, no congestion CV: No chest pain, no dyspnea on exertion, no palpitations GI: + nausea, +vomiting, no diarrhea, + pain, no constipation : No frequency, no urgency, no dysuria MUSC/SKEL: No joint pain, no back pain SKIN: No rash NEURO: No weakness, no headache Past Medical History Past Medical History CARDIAC: Positive Cardiac Disorders and Hypertension RESPIRATORY: Positive Pneumonia GASTROINTESTINAL: Positive Gall Bladder Disease and Gastroesophageal Reflux Disease REPRODUCTIVE: Positive Previous Pregnancies MUSCULOSKELETAL: Positive Musculoskeletal Disorders and Arthritis ENT: Positive Cataracts and Deafness HEMATOLOGIC: Positive Blood Disorders and Anemia PSYCHO/SOCIAL: Positive Depression and Anxiety OTHER HISTORY: Positive Blood Transfusions, Chicken Pox and Measles Family History FAMILY HISTORY: Positive Family Cardiac Disorders and Family Surgery Surgical History SURGICAL: Positive Eye Surgery, Abdominal Surgery, Joint Replacement and Hysterectomy; Negative Cardiac Surgery, Pacemaker or Endocrine Surgery Social History SMOKING STATUS: Never smoker SUBSTANCE USE: does not use ED Exam Narrative Physical exam: GENERAL APPEARANCE: alert and oriented x 4, well-developed, well-nourished, no acute distress HEENT: Normocephalic, atraumatic; pupils equal, round, reactive to light; EOMI; mucous membranes pink, moist; oropharynx clear NECK: Supple LUNGS: CTABL; no wheezes, no rales, no rhonchi HEART: Regular rate, regular rhythm; normal S1, S2; no murmurs ABDOMEN: moderately distended; normal active BS; soft, no tenderness, no guarding, no rebound; no masses, no organomegaly, no hernia BACK: no CVA tenderness EXTREMITIES: atraumatic; no edema NEUROLOGIC: awake; alert and oriented x4; cranial nerves II-XII grossly intact; no focal sensory or motor deficits PSYCHIATRIC: appropriate mood and affect SKIN: warm, dry, normal color; no rashes Course Quality Measures none Orders Category Date Time Status KUB [XR abdomen 1V] Stat Exams 12/08/24 09:39 Completed Blood Culture (Lab) Stat Lab 12/08/24 13:25 Received CBC Stat Lab 12/08/24 10:10 Completed Comprehensive Metabolic Panel Stat Lab 12/08/24 10:10 Completed Lactate (Lactic Acid) Stat Lab 12/08/24 13:30 Completed Lactic Acid, 3 HR Stat Lab 12/08/24 17:40 Completed Lipase Stat Lab 12/08/24 10:10 Completed Procalcitonin Stat Lab 12/08/24 13:30 Completed Urinalysis, C/S if Indicated Stat Lab 12/08/24 15:30 Completed Sodium Chloride 0.9% 1000 ml [Ns] 1,000 ml Med 12/08/24 12:58 Discontinued IV 999 mls/hr Sodium Chloride 0.9% 1000 ml [Ns] 1,000 ml Med 12/08/24 16:12 Discontinued IV 999 mls/hr Reevaluation(s) Reevaluation #1: Patient remains clinically stable throughout the emergency department visit. We reviewed all the results, analysis, and treatment plans. Patient is amenable to discharge. Strict return precautions were outlined. Patient was discharged in stable condition. Time: 18:15 Vital Signs Vital signs: Vital Signs Temperature 99.1 F 12/08/24 09:22 Pulse Rate 105 H 12/08/24 09:22 Respiratory Rate 18 12/08/24 09:22 Blood Pressure 164/98 H 12/08/24 09:22 Pulse Oximetry (%) 98 12/08/24 09:22 Oxygen Delivery Method Room Air 12/08/24 09:22 Pulse ox is 98% on room air which is adequate. Abdominal Pain MDM MDM Narrative MDM Narrative:: IJuly am scribing for and in the presence of Dr. Geronimo. Patient data External records reviewed:: [facility] previous records (I reviewed admission 08/21/2024 through 08/24/2024 for small bowel obstruction ) Clinical information provided by:: patient Social determinants that could affect healthcare access:: none Patient has the following chronic illnesses:: hypertension, recurrent SBO, GERD How is presenting disease/condition affected by chronic disease/condition?: exacerbated by Evaluation data The following diagnostics were reviewed and interpreted by me:: lab results and radiology exam(s) Lab and/or radiology exams considered but not ordered:: None Interpretation Summary: Ordering Physician: Brianne Culver NP Date of Service: 12/08/24 Procedure(s): XR abdomen 1V Accession Number(s): [id number] cc: Zay Muñoz MD; Brianne Culver NP; Ariel Henderson MD~ Examination: Abdomen AP single view Technique: AP portable supine abdomen, single view Exam date and time: December 08, 2024 1027 hours Comparison August 22, 2024 INDICATIONS: Abdominal pain and vomiting beginning 2 days ago. FINDINGS: Air distended small bowel loop in the left abdomen Moderate stool throughout the colon No free air IMPRESSION: Suspicious for early small bowel obstruction, consider CT scan abdomen and pelvis postcontrast follow-up Dictated By: Zay Muñoz MD Signed By: <Electronically signed by Zay Muñoz MD in OV> 12/08/24 1111 Medications / Prescriptions Medications or Prescriptions considered but not ordered:: None Medication administrations:: Medication Administration History Discontinued Medications Sodium Chloride (Ns) 1,000 mls @ 999 mls/hr IV .Q1H1M ONE Stop: 12/08/24 13:58 Last Admin: 12/08/24 15:38 Dose: 999 mls/hr Documented By: KF Sodium Chloride (Ns) 1,000 mls @ 999 mls/hr IV .Q1H1M ONE Stop: 12/08/24 17:12 Last Admin: 12/08/24 16:41 Dose: 999 mls/hr Documented By: DO See above Consultations Consultation(s) initiated? (list below): No Diagnosis Differential diagnosis abdominal pain: abdominal pain, constipation, diverticulitis and small bowel obstruction Most likely diagnosis given after review of the tests above:: Nausea and vomiting Intermittent small bowel obstruction Admission Indicated Admission indicated?: not indicated Admission Request Was there a request for admission?: No Disposition Plan Disposition Plan: Discharge Discharge Attestation Discharge Attestation: The patient and all family members were given an opportunity to ask questions and understood the discharge instructions. Discharge instructions specifically effects, indications for sooner follow up or return to the emergency department, and the expected course of current diagnosis. Patient condition: Stable Discharge Plan Plan Patient Disposition: HOME (Self Care) Prescriptions/Referrals Prescriptions/Med Rec: No Action losartan [Cozaar] 50 mg Tablet 50 mg PO QDAY Qty: 0 Linzess 145 mcg capsule 145 mcg PO DAILY Patient Comments: PLEASE SEE ATTACHED FOR DETAILED DIRECTIONS mirtazapine 15 mg tablet,disintegrating 15 mg PO HS Patient Comments: PLACE 1 TABLET ON THE TONGUE AND ALLOW TO DISSOLVE ONCE A DAY AT BEDTIME FOR 30 DAYS pantoprazole 40 mg tablet,delayed release (DR/EC) 40 mg PO QDAY Qty: 90 1RF aspirin 81 mg Capsule 81 mg PO QDAY Referrals: Ariel Henderson MD [Primary Care Provider] - In 1 week Problem List Clinical Impression: Vomiting, Intermittent small bowel obstruction Patient/Caregiver Discharge Instructions Education Materials: Small Bowel Obstruction Print Language: Citizen Of [place] Stand Alone Forms: [facility] Award Info., Patient Portal Info Letter
[2024-12-08 16:08] LABS: Culture Indicated,Urine Contaminated; Leukocyte Esterase,Urine 1+ (Negative)
[2024-12-08 16:41] LABS: Reflex Lactate? Y
[2024-12-08 17:46] LABS: Lactic Acid, 3 HR 4.1 mMol/L (0.4-2.0)
[2024-12-08 18:02] VITALS: BP 140/71; PULSE 79; RESP 16; TEMP 36.8; O2SAT 95
[2024-12-08 18:30] VITALS: BP 147/79; PULSE 80; RESP 18; TEMP 36.8; O2SAT 97
== END 2024-12-08 18:30 | disposition home or self-care (01) ==
PROVIDERS: Nurse Practitioner Family; Emergency Provider Emergency Medicine; PCP Family Medicine
DX: K56.609 Unspecified intestinal obstruction, unspecified as to partial versus complete obstruction (principal)
CPT/HCPCS: 36415; 74018; 80053; 81001; 83605; 83690; 84145; 85025; 87040; 96360; 96361; 99284; J7030